=== PATIENT | male | born 1995 | race Hispanic/Latino ===

== ENCOUNTER 2023-01-24 16:26 | Emergency (ER) | payer SELFPAY ==
[2023-01-24 16:28] VITALS: BP 149/103; PULSE 71; RESP 16; TEMP 35.9; O2SAT 96; BMI 41.3
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
[2023-01-24] MEDS: Ibuprofen 600 MG Tablet PO (16:42)
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
[2023-01-24 17:17] VITALS: PULSE 75; RESP 18; O2SAT 95
[2023-01-24 17:53] VITALS: BP 142/115; PULSE 85; RESP 18; O2SAT 96
== END 2023-01-24 18:01 | disposition home or self-care (01) ==
LOC: ED 18:01
PROVIDERS: Emergency Provider Emergency Medicine; Visit Provider Emergency Medicine
DX: S16.1XXA Strain of muscle, fascia and tendon at neck level, initial encounter (principal); V43.52XA Car driver injured in collision with other type car in traffic accident, initial encounter; S96.919A Strain of unspecified muscle and tendon at ankle and foot level, unspecified foot, initial encounter; Y92.410 Unspecified street and highway as the place of occurrence of the external cause
CPT/HCPCS: 72125; 72128; 73610; 73630; 99284